=== PATIENT | female | born 1965 | race African-American/Black ===

== ENCOUNTER 2021-03-27 12:58 | Inpatient (IN) | payer OTHER ==
[2021-03-27] MEDS ORDERED: ACETAMINOPHEN 325 MG TABLET (FP) PO PRN ×2 (13:30)
[2021-03-27] MEDS ORDERED: NICOTINE 10 MG CARTRIDGE (INHALER) IH PRN (13:30)
[2021-03-27] MEDS ORDERED: IBUPROFEN 400 MG TABLET (FP) PO PRN (13:30)
[2021-03-27] MEDS ORDERED: ONDANSETRON *ODT* 4 MG TABLET SL PRN (13:30)
[2021-03-27] MEDS ORDERED: MAGNESIUM CITRATE 300 ML BOTTLE PO PRN (13:30)
[2021-03-27] MEDS ORDERED: cloNIDine HCL 0.1 MG TABLET PO PRN (13:30)
[2021-03-27] MEDS ORDERED: BISMUTH SUBSALICYLATE 524 MG/30 ML PO PRN (13:30)
[2021-03-27] MEDS ORDERED: MAG HYDROX/AL HYDROX/SIMETH 30 ML UNIT-DOSE CUP PO PRN (13:30)
[2021-03-27] MEDS ORDERED: MENTHOL/PHENOL 1 EACH UD MM PRN (13:30)
[2021-03-27] MEDS ORDERED: MAGNESIUM HYDROX 2400MG/30ML ORAL SUSPENSION 30 ML CUP PO PRN (13:30)
[2021-03-27] MEDS ORDERED: methaDONE HCL 10 MG TABLET (FOR DETOX USE ONLY) PO ONE (14:00)
[2021-03-27 14:06] VITALS: BMI 16.2
[2021-03-27] MEDS ORDERED: methaDONE HCL 10 MG TABLET (FOR DETOX USE ONLY) ONE (14:12)
[2021-03-27] MEDS: hydrOXYzine PAMOATE 25 MG CAPSULE (FP) PO SCH ×3 (14:39→22:41)
[2021-03-27] MEDS: PRENATAL VITAMINS W/ FOLIC ACID TABLET (FP) PO SCH (16:01)
[2021-03-27] MEDS: MELATONIN 5 MG TABLETS PO SCH (22:41)
[2021-03-27] MEDS: THIAMINE HCL 100 MG TABLET (FP) PO SCH (22:41)
[2021-03-28] MEDS: hydrOXYzine PAMOATE 25 MG CAPSULE (FP) PO SCH ×5 (06:18→21:31)
[2021-03-28] MEDS ORDERED: methaDONE HCL 10 MG TABLET (FOR DETOX USE ONLY) ONE (09:38)
[2021-03-28] MEDS: PRENATAL VITAMINS W/ FOLIC ACID TABLET (FP) PO SCH (10:04)
[2021-03-28] MEDS: METHOCARBAMOL 500 MG TABLET PO PRN (10:04)
[2021-03-28 11:49] LABS: HEMATOCRIT 38.6 % (32.4-45.2); HEMOGLOBIN 12.4 GM/dL (10.7-15.3); MCH 25.6 pg (25.7-33.7); MCHC 32.3 g/dl (32.0-36.0); MEAN CELL VOLUME 79.4 fl (80-96); MEAN PLT VOLUME 11.7 fl (7.5-11.1); PLATELET COUNT 310 10^3/uL (134-434); RBC 4.86 M/mm3 (3.60-5.2); RDW 14.2 % (11.6-15.6); WHITE BLOOD COUNT 9.2 K/mm3 (4.0-10.0)
[2021-03-28] MEDS ORDERED: FLU VACC QS2021-22(6MOS UP)/PF 60 MCG/0.5 ML SYRINGE IM ONE (12:00)
[2021-03-28 12:19] LABS: CALCIUM 8.7 mg/dL (8.5-10.1)
[2021-03-28 12:20] LABS: ALBUMIN 2.6 g/dl (3.4-5.0); BLOOD UREA NITROGEN 12.8 mg/dL (7-18)
[2021-03-28 12:23] LABS: CREATININE 0.9 mg/dL (0.55-1.3)
[2021-03-28 12:24] LABS: BILIRUBIN,TOTAL 0.3 mg/dL (0.2-1); TOT PROT 6.8 g/dl (6.4-8.2)
[2021-03-28] MEDS: MELATONIN 5 MG TABLETS PO SCH (21:31)
[2021-03-28] MEDS: THIAMINE HCL 100 MG TABLET (FP) PO SCH (21:31)
[2021-03-28] MEDS: QUEtiapine FUMARATE 100 MG TABLET (FP) PO SCH (21:31)
[2021-03-29] MEDS: hydrOXYzine PAMOATE 25 MG CAPSULE (FP) PO SCH ×4 (06:07→19:54)
[2021-03-29] MEDS ORDERED: methaDONE HCL 10 MG TABLET (FOR DETOX USE ONLY) PO ONE (10:00)
[2021-03-29] MEDS: PRENATAL VITAMINS W/ FOLIC ACID TABLET (FP) PO SCH (10:52)
[2021-03-29] MEDS: METHOCARBAMOL 500 MG TABLET PO PRN (10:52)
[2021-03-30] MEDS: hydrOXYzine PAMOATE 25 MG CAPSULE (FP) PO SCH ×6 (00:01→22:51)
[2021-03-30] MEDS: THIAMINE HCL 100 MG TABLET (FP) PO SCH ×2 (00:01→22:52)
[2021-03-30] MEDS: MELATONIN 5 MG TABLETS PO SCH ×2 (00:01→22:00)
[2021-03-30] MEDS: QUEtiapine FUMARATE 100 MG TABLET (FP) PO SCH ×2 (00:02→22:51)
[2021-03-30] MEDS ORDERED: methaDONE HCL 10 MG TABLET (FOR DETOX USE ONLY) ONE (09:38)
[2021-03-30] MEDS: PRENATAL VITAMINS W/ FOLIC ACID TABLET (FP) PO SCH (11:13)
[2021-03-30] MEDS: METHOCARBAMOL 500 MG TABLET PO PRN (11:14)
[2021-03-30] MEDS: METHYL SALICYLATE/MENTHOL OINT 30 GM TUBE TP SCH ×2 (15:34→22:00)
[2021-03-31] MEDS: hydrOXYzine PAMOATE 25 MG CAPSULE (FP) PO SCH ×5 (06:10→22:32)
[2021-03-31] MEDS ORDERED: methaDONE HCL 10 MG TABLET (FOR DETOX USE ONLY) PO ONE (10:00)
[2021-03-31] MEDS: PRENATAL VITAMINS W/ FOLIC ACID TABLET (FP) PO SCH (10:07)
[2021-03-31] MEDS: METHYL SALICYLATE/MENTHOL OINT 30 GM TUBE TP SCH ×2 (10:09→22:32)
[2021-03-31] MEDS: METHOCARBAMOL 500 MG TABLET PO PRN (10:12)
[2021-03-31] MEDS: THIAMINE HCL 100 MG TABLET (FP) PO SCH (22:32)
[2021-03-31] MEDS: MELATONIN 5 MG TABLETS PO SCH (22:32)
[2021-03-31] MEDS: QUEtiapine FUMARATE 100 MG TABLET (FP) PO SCH (22:32)
[2021-04-01] MEDS: hydrOXYzine PAMOATE 25 MG CAPSULE (FP) PO SCH ×3 (06:38→13:50)
[2021-04-01] MEDS: PRENATAL VITAMINS W/ FOLIC ACID TABLET (FP) PO SCH (11:11)
[2021-04-01] MEDS: METHYL SALICYLATE/MENTHOL OINT 30 GM TUBE TP SCH (11:12)
[2021-04-01 17:47] VITALS: BP 151/86; PULSE 95; TEMP 98.7
== END 2021-04-01 18:25 | disposition home or self-care (01) | DRG 773 ==
LOC: YASAS 12:58 → Y6N 14:45
PROVIDERS: ADMIT Allergy & Immunology; ATTEND Allergy & Immunology
PROC: HZ2ZZZZ Detoxification Services for Substance Abuse Treatment (ICD-10-PCS; principal; 2021-03-27)
DX: F11.23 Opioid dependence with withdrawal (principal); F14.20 Cocaine dependence, uncomplicated; F16.20 Hallucinogen dependence, uncomplicated; F12.20 Cannabis dependence, uncomplicated; F17.210 Nicotine dependence, cigarettes, uncomplicated; F19.280 Other psychoactive substance dependence with psychoactive substance-induced anxiety disorder; F19.282 Other psychoactive substance dependence with psychoactive substance-induced sleep disorder; F41.9 Anxiety disorder, unspecified; U07.1 COVID-19; M17.0 Bilateral primary osteoarthritis of knee; M47.9 Spondylosis, unspecified; Z86.19 Personal history of other infectious and parasitic diseases; Z56.0 Unemployment, unspecified; Z59.00 Homelessness unspecified
CPT/HCPCS: 36415; 80053; 85027; 86593; 86780; 90686; C9803; G0008; U0003; U0005

== ENCOUNTER 2021-11-15 12:52 | Inpatient (IN) | payer OTHER ==
[2021-11-15 15:27] VITALS: BMI 16.1
[2021-11-15] MEDS ORDERED: chlordiazePOXIDE HCL 25 MG CAPSULE PO PRN (16:42)
[2021-11-15] MEDS ORDERED: METHOCARBAMOL 500 MG TABLET PO PRN (16:42)
[2021-11-15] MEDS ORDERED: BENZOCAINE/MENTHOL (CHLORASEPTIC ) LOZENGE MM PRN (16:42)
[2021-11-15] MEDS ORDERED: BISMUTH SUBSALICYLATE 524 MG/30 ML PO PRN (16:42)
[2021-11-15] MEDS ORDERED: NICOTINE 10 MG CARTRIDGE (INHALER) IH PRN (16:42)
[2021-11-15] MEDS ORDERED: MAGNESIUM CITRATE 300 ML BOTTLE PO PRN (16:42)
[2021-11-15] MEDS ORDERED: MAGNESIUM HYDROX 2400MG/30ML ORAL SUSPENSION 30 ML CUP PO PRN (16:42)
[2021-11-15] MEDS ORDERED: IBUPROFEN 400 MG TABLET (FP) PO PRN (16:42)
[2021-11-15] MEDS ORDERED: LOPERAMIDE HCL 2 MG CAPSULE PO PRN (16:42)
[2021-11-15] MEDS ORDERED: IBUPROFEN 600 MG TABLET (FP) PO PRN (16:42)
[2021-11-15] MEDS ORDERED: MAG HYDROX/AL HYDROX/SIMETH 30 ML UNIT-DOSE CUP PO PRN (16:42)
[2021-11-15] MEDS ORDERED: ACETAMINOPHEN 325 MG TABLET (FP) PO PRN ×2 (16:42)
[2021-11-15] MEDS ORDERED: methaDONE HCL 10 MG TABLET (FOR DETOX USE ONLY) PO ONE (16:42)
[2021-11-15] MEDS ORDERED: DICYCLOMINE HCL 10 MG CAPSULE PO PRN (16:42)
[2021-11-15] MEDS ORDERED: methaDONE HCL 10 MG TABLET (FOR DETOX USE ONLY) ONE (16:59)
[2021-11-15] MEDS ORDERED: chlordiazePOXIDE HCL 25 MG CAPSULE ONE (17:26)
[2021-11-15] MEDS: chlordiazePOXIDE HCL 25 MG CAPSULE PO SCH ×2 (17:31→22:56)
[2021-11-15] MEDS: MELATONIN 5 MG TABLETS PO SCH (22:56)
[2021-11-15] MEDS: THIAMINE HCL 100 MG TABLET (FP) PO SCH (22:57)
[2021-11-16] MEDS: cloNIDine HCL 0.1 MG TABLET PO PRN (05:59)
[2021-11-16] MEDS: chlordiazePOXIDE HCL 25 MG CAPSULE PO SCH ×4 (05:59→22:59)
[2021-11-16] MEDS: NICOTINE 7 MG/24 HOURS TOPICAL PATCH TD SCH (11:05)
[2021-11-16] MEDS: PRENATAL VITAMINS W/ FOLIC ACID TABLET (FP) PO SCH (11:05)
[2021-11-16 14:24] LABS: HEMATOCRIT 39.4 % (32.4-45.2); MCH 26.2 pg (25.7-33.7); MEAN CELL VOLUME 79.5 fl (80-96); MEAN PLT VOLUME 10.5 fl (7.5-11.1); PLATELET COUNT 162 10^3/uL (134-434); RBC 4.95 M/mm3 (3.60-5.2); RDW 15.1 % (11.6-15.6); WHITE BLOOD COUNT 10.5 K/mm3 (4.0-10.0)
[2021-11-16 14:27] LABS: ALBUMIN 2.7 g/dl (3.4-5.0); CALCIUM 8.9 mg/dL (8.5-10.1); CREATININE 0.6 mg/dL (0.55-1.3)
[2021-11-16 14:28] LABS: TOT PROT 6.6 g/dl (6.4-8.2)
[2021-11-16 14:29] LABS: BILIRUBIN,TOTAL 0.4 mg/dL (0.2-1)
[2021-11-16] MEDS ORDERED: QUEtiapine FUMARATE 200 MG TABLET PO SCH (22:00)
[2021-11-16] MEDS ORDERED: QUEtiapine FUMARATE 200 MG TABLET PO PRN (22:00)
[2021-11-16] MEDS: MELATONIN 5 MG TABLETS PO SCH (22:59)
[2021-11-16] MEDS: THIAMINE HCL 100 MG TABLET (FP) PO SCH (22:59)
[2021-11-17] MEDS: chlordiazePOXIDE HCL 25 MG CAPSULE PO SCH ×3 (06:28→18:02)
[2021-11-17] MEDS: cloNIDine HCL 0.1 MG TABLET PO PRN ×2 (06:29→10:53)
[2021-11-17] MEDS ORDERED: methaDONE HCL 10 MG TABLET (FOR DETOX USE ONLY) PO ONE (10:00)
[2021-11-17] MEDS: NICOTINE 7 MG/24 HOURS TOPICAL PATCH TD SCH (10:53)
[2021-11-17] MEDS: PRENATAL VITAMINS W/ FOLIC ACID TABLET (FP) PO SCH (10:53)
[2021-11-17] MEDS: SIMETHICONE 80 MG TAB.CHEW (FP) PO SCH ×2 (13:47→18:02)
[2021-11-17 19:06] VITALS: BP 112/63; PULSE 81; RESP 16; TEMP 97.1
[2021-11-18] MEDS ORDERED: chlordiazePOXIDE HCL 10 MG CAPSULE PO PRN
[2021-11-18] MEDS ORDERED: chlordiazePOXIDE HCL 10 MG CAPSULE PO SCH (05:00)
[2021-11-19] MEDS ORDERED: chlordiazePOXIDE HCL 10 MG CAPSULE PO SCH (05:00)
[2021-11-19] MEDS ORDERED: methaDONE HCL 10 MG TABLET (FOR DETOX USE ONLY) PO ONE (10:00)
[2021-11-20] MEDS ORDERED: chlordiazePOXIDE HCL 10 MG CAPSULE PO ONE (05:00)
== END 2021-11-17 19:22 | disposition left against medical advice (07) | DRG 770 ==
LOC: YASAS 12:52 → Y3N 17:49
PROVIDERS: ADMIT Allergy & Immunology; ATTEND Surgery
PROC: HZ2ZZZZ Detoxification Services for Substance Abuse Treatment (ICD-10-PCS; principal; 2021-11-15)
DX: F10.230 Alcohol dependence with withdrawal, uncomplicated (principal); F11.20 Opioid dependence, uncomplicated; F14.20 Cocaine dependence, uncomplicated; F12.20 Cannabis dependence, uncomplicated; F17.210 Nicotine dependence, cigarettes, uncomplicated; F19.24 Other psychoactive substance dependence with psychoactive substance-induced mood disorder; F43.10 Post-traumatic stress disorder, unspecified; D72.829 Elevated white blood cell count, unspecified; W19.XXXA Unspecified fall, initial encounter; Y92.239 Unspecified place in hospital as the place of occurrence of the external cause; Y93.9 Activity, unspecified; Z86.19 Personal history of other infectious and parasitic diseases; Z59.00 Homelessness unspecified
CPT/HCPCS: 36415; 80053; 85027; 87811; C9803-CS; U0003; U0005

== ENCOUNTER 2022-02-19 16:32 | Inpatient (IN) | payer OTHER ==
[2022-02-19 17:12] VITALS: BMI 18.3
[2022-02-19] MEDS ORDERED: LOPERAMIDE HCL 2 MG CAPSULE PO PRN (18:04)
[2022-02-19] MEDS ORDERED: MAGNESIUM HYDROX 2400MG/30ML ORAL SUSPENSION 30 ML CUP PO PRN (18:04)
[2022-02-19] MEDS ORDERED: MAG HYDROX/AL HYDROX/SIMETH 30 ML UNIT-DOSE CUP PO PRN (18:04)
[2022-02-19] MEDS ORDERED: POLYETHYLENE GLYCOL (HEALTHYLAX) 3350 17 GM PACKET PO PRN (18:04)
[2022-02-19] MEDS: MELATONIN 5 MG TABLETS PO SCH (21:45)
[2022-02-19] MEDS: THIAMINE HCL 100 MG TABLET (FP) PO SCH (21:45)
[2022-02-19] MEDS: PRENATAL VITAMINS W/ FOLIC ACID TABLET (FP) PO SCH (21:46)
[2022-02-19] MEDS: NICOTINE 7 MG/24 HOURS TOPICAL PATCH TD SCH (21:46)
[2022-02-19] MEDS: ACETAMINOPHEN 325 MG TABLET (FP) PO PRN (21:58)
[2022-02-19] MEDS: CLOTRIMAZOLE 1% CREAM TP SCH (22:41)
[2022-02-20] MEDS: PRENATAL VITAMINS W/ FOLIC ACID TABLET (FP) PO SCH (10:20)
[2022-02-20] MEDS: CLOTRIMAZOLE 1% CREAM TP SCH ×2 (10:20→21:02)
[2022-02-20] MEDS: FLUTICASONE PROP 0.05% 16 GM NASAL SPRAY NS SCH (10:20)
[2022-02-20] MEDS: NICOTINE 7 MG/24 HOURS TOPICAL PATCH TD SCH (10:20)
[2022-02-20 10:21] LABS: HEMATOCRIT 34.7 % (32.4-45.2); HEMOGLOBIN 11.7 GM/dL (10.7-15.3); MCH 26.3 pg (25.7-33.7); MCHC 33.7 g/dl (32.0-36.0); MEAN PLT VOLUME 9.9 fl (7.5-11.1); PLATELET COUNT 160 10^3/uL (134-434); RBC 4.45 M/mm3 (3.60-5.2); RDW 15.1 % (11.6-15.6); WHITE BLOOD COUNT 8.6 K/mm3 (4.0-10.0)
[2022-02-20] MEDS: IBUPROFEN 400 MG TABLET (FP) PO PRN ×2 (10:21→21:02)
[2022-02-20] MEDS: NICOTINE 10 MG CARTRIDGE (INHALER) IH PRN (10:21)
[2022-02-20] MEDS: hydrOXYzine PAMOATE 25 MG CAPSULE (FP) PO PRN ×2 (10:26→21:03)
[2022-02-20 10:27] LABS: EPI CELLS 8 /uL (0-25.1); HYALINE CASTS 0 /uL (0-3.1); URINE APPEARANCE CLEAR; URINE BACTERIA 11 /uL (0-1359); URINE BILIRUBIN NEGATIVE (NEGATIVE); URINE COLOR YELLOW; URINE GLUCOSE (UA) NEGATIVE (NEGATIVE); URINE KETONE NEGATIVE (NEGATIVE); URINE LEUK ESTERASE 1+ (NEGATIVE); URINE NITRITE NEGATIVE (NEGATIVE); URINE PROTEIN NEGATIVE (NEGATIVE); URINE RBC 3 /uL (0-23.9); URINE UROBILINOGEN 0.2 mg/dL (0.2-1.0); URINE WBC 24 /uL (0-25.8)
[2022-02-20 10:32] LABS: CALCIUM 9.2 mg/dL (8.5-10.1)
[2022-02-20 10:33] LABS: ALBUMIN 3.3 g/dl (3.4-5.0)
[2022-02-20 10:36] LABS: CREATININE 0.8 mg/dL (0.55-1.3)
[2022-02-20 10:37] LABS: BILIRUBIN,TOTAL 0.2 mg/dL (0.2-1); TOT PROT 7.7 g/dl (6.4-8.2)
[2022-02-20] MEDS: AMMONIUM LACTATE 12% LOTION 225 GM BOTTLE TP SCH (14:42)
[2022-02-20] MEDS: ACETAMINOPHEN 325 MG TABLET (FP) PO PRN (16:42)
[2022-02-20] MEDS: MELATONIN 5 MG TABLETS PO SCH (21:02)
[2022-02-20] MEDS: THIAMINE HCL 100 MG TABLET (FP) PO SCH (21:03)
[2022-02-20] MEDS: QUEtiapine FUMARATE 50 MG TABLET PO SCH (21:04)
[2022-02-20] MEDS: METHOCARBAMOL 500 MG TABLET PO PRN (21:04)
[2022-02-21] MEDS: IBUPROFEN 400 MG TABLET (FP) PO PRN (06:47)
[2022-02-21] MEDS: NICOTINE 7 MG/24 HOURS TOPICAL PATCH TD SCH (10:23)
[2022-02-21] MEDS: PRENATAL VITAMINS W/ FOLIC ACID TABLET (FP) PO SCH (10:23)
[2022-02-21] MEDS: CLOTRIMAZOLE 1% CREAM TP SCH ×2 (10:24→21:05)
[2022-02-21] MEDS: FLUTICASONE PROP 0.05% 16 GM NASAL SPRAY NS SCH (10:24)
[2022-02-21] MEDS: AMMONIUM LACTATE 12% LOTION 225 GM BOTTLE TP SCH (10:25)
[2022-02-21] MEDS: hydrOXYzine PAMOATE 25 MG CAPSULE (FP) PO PRN (10:26)
[2022-02-21] MEDS: ACETAMINOPHEN 325 MG TABLET (FP) PO PRN (10:27)
[2022-02-21] MEDS ORDERED: BUPRENORPHINE/NALOXONE 2 MG/0.5 MG FILM PACKET SL ONE (12:43)
[2022-02-21] MEDS: BUPRENORPHINE/NALOXONE 4 MG/1 MG FILM PACKET SL SCH (21:03)
[2022-02-21] MEDS: THIAMINE HCL 100 MG TABLET (FP) PO SCH (21:05)
[2022-02-21] MEDS: MELATONIN 5 MG TABLETS PO SCH (21:05)
[2022-02-21] MEDS: QUEtiapine FUMARATE 50 MG TABLET PO SCH (21:34)
[2022-02-22] MEDS: NICOTINE 7 MG/24 HOURS TOPICAL PATCH TD SCH (10:35)
[2022-02-22] MEDS: PRENATAL VITAMINS W/ FOLIC ACID TABLET (FP) PO SCH (10:35)
[2022-02-22] MEDS: NICOTINE 10 MG CARTRIDGE (INHALER) IH PRN (10:36)
[2022-02-22] MEDS: BUPRENORPHINE/NALOXONE 4 MG/1 MG FILM PACKET SL SCH ×2 (10:36→21:07)
[2022-02-22] MEDS: AMMONIUM LACTATE 12% LOTION 225 GM BOTTLE TP SCH (10:36)
[2022-02-22] MEDS: hydrOXYzine PAMOATE 25 MG CAPSULE (FP) PO PRN ×2 (10:37→21:09)
[2022-02-22] MEDS: FLUTICASONE PROP 0.05% 16 GM NASAL SPRAY NS SCH (10:38)
[2022-02-22] MEDS: CLOTRIMAZOLE 1% CREAM TP SCH ×2 (10:38→21:07)
[2022-02-22] MEDS: METHOCARBAMOL 500 MG TABLET PO PRN ×2 (14:23→21:06)
[2022-02-22] MEDS: IBUPROFEN 400 MG TABLET (FP) PO PRN ×2 (14:23→21:08)
[2022-02-22] MEDS: THIAMINE HCL 100 MG TABLET (FP) PO SCH (21:07)
[2022-02-22] MEDS: QUEtiapine FUMARATE 50 MG TABLET PO SCH (21:07)
[2022-02-22] MEDS: MELATONIN 5 MG TABLETS PO SCH (21:07)
[2022-02-23] MEDS: PRENATAL VITAMINS W/ FOLIC ACID TABLET (FP) PO SCH (10:23)
[2022-02-23] MEDS: CLOTRIMAZOLE 1% CREAM TP SCH ×2 (10:24→21:14)
[2022-02-23] MEDS: NICOTINE 7 MG/24 HOURS TOPICAL PATCH TD SCH (10:24)
[2022-02-23] MEDS: FLUTICASONE PROP 0.05% 16 GM NASAL SPRAY NS SCH (10:24)
[2022-02-23] MEDS: BUPRENORPHINE/NALOXONE 4 MG/1 MG FILM PACKET SL SCH ×2 (10:24→21:13)
[2022-02-23] MEDS: AMMONIUM LACTATE 12% LOTION 225 GM BOTTLE TP SCH (10:24)
[2022-02-23] MEDS: QUEtiapine FUMARATE 50 MG TABLET PO SCH (21:13)
[2022-02-23] MEDS: METHOCARBAMOL 500 MG TABLET PO PRN (21:13)
[2022-02-23] MEDS: THIAMINE HCL 100 MG TABLET (FP) PO SCH (21:13)
[2022-02-23] MEDS: MELATONIN 5 MG TABLETS PO SCH (21:14)
[2022-02-24] MEDS: CLOTRIMAZOLE 1% CREAM TP SCH ×2 (09:42→21:12)
[2022-02-24] MEDS: FLUTICASONE PROP 0.05% 16 GM NASAL SPRAY NS SCH (09:42)
[2022-02-24] MEDS: NICOTINE 7 MG/24 HOURS TOPICAL PATCH TD SCH (09:43)
[2022-02-24] MEDS: PRENATAL VITAMINS W/ FOLIC ACID TABLET (FP) PO SCH (09:43)
[2022-02-24] MEDS: ACETAMINOPHEN 325 MG TABLET (FP) PO PRN (09:43)
[2022-02-24] MEDS: BUPRENORPHINE/NALOXONE 4 MG/1 MG FILM PACKET SL SCH (09:43)
[2022-02-24] MEDS: hydrOXYzine PAMOATE 25 MG CAPSULE (FP) PO PRN (09:44)
[2022-02-24] MEDS: AMMONIUM LACTATE 12% LOTION 225 GM BOTTLE TP SCH (09:45)
[2022-02-24] MEDS ORDERED: BUPRENORPHINE/NALOXONE 4 MG/1 MG FILM PACKET SL ONE (12:30)
[2022-02-24] MEDS: MELATONIN 5 MG TABLETS PO SCH (21:12)
[2022-02-24] MEDS: METHOCARBAMOL 500 MG TABLET PO PRN (21:12)
[2022-02-24] MEDS: QUEtiapine FUMARATE 50 MG TABLET PO SCH (21:12)
[2022-02-24] MEDS: THIAMINE HCL 100 MG TABLET (FP) PO SCH (21:12)
[2022-02-24] MEDS: BUPRENORPHINE/NALOXONE 8 MG/2 MG FILM PACKET SL SCH (21:15)
[2022-02-25] MEDS: METHOCARBAMOL 500 MG TABLET PO PRN (06:29)
[2022-02-25] MEDS: NICOTINE 10 MG CARTRIDGE (INHALER) IH PRN (10:31)
[2022-02-25] MEDS: LIDOCAINE 5% TOPICAL PATCH TP SCH (10:31)
[2022-02-25] MEDS: PRENATAL VITAMINS W/ FOLIC ACID TABLET (FP) PO SCH (10:31)
[2022-02-25] MEDS: FLUTICASONE PROP 0.05% 16 GM NASAL SPRAY NS SCH (10:32)
[2022-02-25] MEDS: AMMONIUM LACTATE 12% LOTION 225 GM BOTTLE TP SCH (10:32)
[2022-02-25] MEDS: CLOTRIMAZOLE 1% CREAM TP SCH ×2 (10:32→21:50)
[2022-02-25] MEDS: NICOTINE 7 MG/24 HOURS TOPICAL PATCH TD SCH (10:33)
[2022-02-25] MEDS: BUPRENORPHINE/NALOXONE 8 MG/2 MG FILM PACKET SL SCH ×2 (10:33→21:08)
[2022-02-25] MEDS: THIAMINE HCL 100 MG TABLET (FP) PO SCH (21:08)
[2022-02-25] MEDS: MELATONIN 5 MG TABLETS PO SCH (21:08)
[2022-02-25] MEDS: QUEtiapine FUMARATE 50 MG TABLET PO SCH (21:08)
[2022-02-25] MEDS: LIDOCAINE PATCH REMOVAL MC SCH (21:09)
[2022-02-26] MEDS: BUPRENORPHINE/NALOXONE 8 MG/2 MG FILM PACKET SL SCH ×2 (10:24→21:24)
[2022-02-26] MEDS: PRENATAL VITAMINS W/ FOLIC ACID TABLET (FP) PO SCH (10:24)
[2022-02-26] MEDS: NICOTINE 7 MG/24 HOURS TOPICAL PATCH TD SCH (10:24)
[2022-02-26] MEDS: LIDOCAINE 5% TOPICAL PATCH TP SCH ×2 (10:25→14:50)
[2022-02-26] MEDS: AMMONIUM LACTATE 12% LOTION 225 GM BOTTLE TP SCH (10:25)
[2022-02-26] MEDS: CLOTRIMAZOLE 1% CREAM TP SCH ×2 (10:26→21:24)
[2022-02-26] MEDS: FLUTICASONE PROP 0.05% 16 GM NASAL SPRAY NS SCH (10:26)
[2022-02-26] MEDS: QUEtiapine FUMARATE 50 MG TABLET PO SCH (21:24)
[2022-02-26] MEDS: MELATONIN 5 MG TABLETS PO SCH (21:24)
[2022-02-26] MEDS: THIAMINE HCL 100 MG TABLET (FP) PO SCH (21:24)
[2022-02-26] MEDS: LIDOCAINE PATCH REMOVAL MC SCH ×2 (21:25)
[2022-02-27] MEDS: PRENATAL VITAMINS W/ FOLIC ACID TABLET (FP) PO SCH (10:42)
[2022-02-27] MEDS: FLUTICASONE PROP 0.05% 16 GM NASAL SPRAY NS SCH ×2 (10:42→21:20)
[2022-02-27] MEDS: LIDOCAINE 5% TOPICAL PATCH TP SCH ×2 (10:43)
[2022-02-27] MEDS: AMMONIUM LACTATE 12% LOTION 225 GM BOTTLE TP SCH (10:43)
[2022-02-27] MEDS: NICOTINE 7 MG/24 HOURS TOPICAL PATCH TD SCH (10:44)
[2022-02-27] MEDS: BUPRENORPHINE/NALOXONE 8 MG/2 MG FILM PACKET SL SCH ×2 (10:45→21:21)
[2022-02-27] MEDS: CLOTRIMAZOLE 1% CREAM TP SCH ×2 (10:45→21:21)
[2022-02-27] MEDS: hydrOXYzine PAMOATE 25 MG CAPSULE (FP) PO PRN (20:01)
[2022-02-27] MEDS: LIDOCAINE PATCH REMOVAL MC SCH ×2 (21:20)
[2022-02-27] MEDS: METHOCARBAMOL 500 MG TABLET PO PRN (21:21)
[2022-02-27] MEDS: MELATONIN 5 MG TABLETS PO SCH (21:21)
[2022-02-27] MEDS: QUEtiapine FUMARATE 50 MG TABLET PO SCH (21:21)
[2022-02-27] MEDS: THIAMINE HCL 100 MG TABLET (FP) PO SCH (21:21)
[2022-02-28] MEDS: PRENATAL VITAMINS W/ FOLIC ACID TABLET (FP) PO SCH (10:28)
[2022-02-28] MEDS: BUPRENORPHINE/NALOXONE 8 MG/2 MG FILM PACKET SL SCH ×2 (10:28→21:38)
[2022-02-28] MEDS: LIDOCAINE 5% TOPICAL PATCH TP SCH ×2 (10:29)
[2022-02-28] MEDS: CLOTRIMAZOLE 1% CREAM TP SCH ×2 (10:29→21:39)
[2022-02-28] MEDS: NICOTINE 7 MG/24 HOURS TOPICAL PATCH TD SCH (10:29)
[2022-02-28] MEDS: AMMONIUM LACTATE 12% LOTION 225 GM BOTTLE TP SCH (10:30)
[2022-02-28] MEDS: NICOTINE 10 MG CARTRIDGE (INHALER) IH PRN (10:31)
[2022-02-28] MEDS: FLUTICASONE PROP 0.05% 16 GM NASAL SPRAY NS SCH ×2 (10:31→21:37)
[2022-02-28] MEDS: hydrOXYzine PAMOATE 25 MG CAPSULE (FP) PO PRN (19:57)
[2022-02-28] MEDS: QUEtiapine FUMARATE 50 MG TABLET PO SCH (21:38)
[2022-02-28] MEDS: METHOCARBAMOL 500 MG TABLET PO PRN (21:38)
[2022-02-28] MEDS: MELATONIN 5 MG TABLETS PO SCH (21:38)
[2022-02-28] MEDS: THIAMINE HCL 100 MG TABLET (FP) PO SCH (21:38)
[2022-02-28] MEDS: LIDOCAINE PATCH REMOVAL MC SCH ×2 (21:39)
[2022-03-01] MEDS: NICOTINE 10 MG CARTRIDGE (INHALER) IH PRN (07:00)
[2022-03-01] MEDS: PRENATAL VITAMINS W/ FOLIC ACID TABLET (FP) PO SCH (10:32)
[2022-03-01] MEDS: NICOTINE 7 MG/24 HOURS TOPICAL PATCH TD SCH (10:32)
[2022-03-01] MEDS: BUPRENORPHINE/NALOXONE 8 MG/2 MG FILM PACKET SL SCH ×3 (10:33→21:53)
[2022-03-01] MEDS: CLOTRIMAZOLE 1% CREAM TP SCH ×2 (10:34→23:52)
[2022-03-01] MEDS: AMMONIUM LACTATE 12% LOTION 225 GM BOTTLE TP SCH (10:34)
[2022-03-01] MEDS: FLUTICASONE PROP 0.05% 16 GM NASAL SPRAY NS SCH ×2 (10:34→21:53)
[2022-03-01] MEDS: LIDOCAINE 5% TOPICAL PATCH TP SCH ×2 (10:35)
[2022-03-01] MEDS: METHOCARBAMOL 500 MG TABLET PO PRN (10:36)
[2022-03-01] MEDS: THIAMINE HCL 100 MG TABLET (FP) PO SCH (21:52)
[2022-03-01] MEDS: MELATONIN 5 MG TABLETS PO SCH (21:52)
[2022-03-01] MEDS: QUEtiapine FUMARATE 50 MG TABLET PO SCH (21:52)
[2022-03-01] MEDS: LIDOCAINE PATCH REMOVAL MC SCH ×2 (23:51)
[2022-03-02] MEDS: NICOTINE 10 MG CARTRIDGE (INHALER) IH PRN (06:27)
[2022-03-02] MEDS: BUPRENORPHINE/NALOXONE 8 MG/2 MG FILM PACKET SL SCH ×3 (06:27→22:10)
[2022-03-02] MEDS: PRENATAL VITAMINS W/ FOLIC ACID TABLET (FP) PO SCH (10:17)
[2022-03-02] MEDS: FLUTICASONE PROP 0.05% 16 GM NASAL SPRAY NS SCH ×2 (10:18→22:11)
[2022-03-02] MEDS: LIDOCAINE 5% TOPICAL PATCH TP SCH ×2 (10:18→10:19)
[2022-03-02] MEDS: AMMONIUM LACTATE 12% LOTION 225 GM BOTTLE TP SCH (10:18)
[2022-03-02] MEDS: METHOCARBAMOL 500 MG TABLET PO PRN (10:19)
[2022-03-02] MEDS: NICOTINE 7 MG/24 HOURS TOPICAL PATCH TD SCH (10:19)
[2022-03-02] MEDS: CLOTRIMAZOLE 1% CREAM TP SCH ×2 (10:19→22:16)
[2022-03-02] MEDS: IBUPROFEN 400 MG TABLET (FP) PO PRN ×2 (13:13→22:10)
[2022-03-02] MEDS: QUEtiapine FUMARATE 50 MG TABLET PO SCH (22:09)
[2022-03-02] MEDS: THIAMINE HCL 100 MG TABLET (FP) PO SCH (22:09)
[2022-03-02] MEDS: MELATONIN 5 MG TABLETS PO SCH (22:09)
[2022-03-02] MEDS: LIDOCAINE PATCH REMOVAL MC SCH ×2 (22:12)
[2022-03-03] MEDS: BUPRENORPHINE/NALOXONE 8 MG/2 MG FILM PACKET SL SCH ×3 (06:27→21:42)
[2022-03-03] MEDS: PRENATAL VITAMINS W/ FOLIC ACID TABLET (FP) PO SCH (10:32)
[2022-03-03] MEDS: NICOTINE 7 MG/24 HOURS TOPICAL PATCH TD SCH (10:33)
[2022-03-03] MEDS: LIDOCAINE 5% TOPICAL PATCH TP SCH ×2 (10:33)
[2022-03-03] MEDS: FLUTICASONE PROP 0.05% 16 GM NASAL SPRAY NS SCH ×2 (10:34→21:40)
[2022-03-03] MEDS: AMMONIUM LACTATE 12% LOTION 225 GM BOTTLE TP SCH (10:34)
[2022-03-03] MEDS: IBUPROFEN 400 MG TABLET (FP) PO PRN (10:35)
[2022-03-03] MEDS: CLOTRIMAZOLE 1% CREAM TP SCH ×2 (10:35→21:41)
[2022-03-03] MEDS: NICOTINE 10 MG CARTRIDGE (INHALER) IH PRN (10:36)
[2022-03-03] MEDS: ACETAMINOPHEN 325 MG TABLET (FP) PO PRN (14:19)
[2022-03-03] MEDS: METHOCARBAMOL 500 MG TABLET PO PRN (21:41)
[2022-03-03] MEDS: QUEtiapine FUMARATE 50 MG TABLET PO SCH (21:41)
[2022-03-03] MEDS: LIDOCAINE PATCH REMOVAL MC SCH ×2 (21:41)
[2022-03-03] MEDS: MELATONIN 5 MG TABLETS PO SCH (21:41)
[2022-03-03] MEDS: hydrOXYzine PAMOATE 25 MG CAPSULE (FP) PO PRN (21:42)
[2022-03-03] MEDS: THIAMINE HCL 100 MG TABLET (FP) PO SCH (21:42)
[2022-03-04] MEDS: BUPRENORPHINE/NALOXONE 8 MG/2 MG FILM PACKET SL SCH ×3 (06:19→21:30)
[2022-03-04] MEDS: PRENATAL VITAMINS W/ FOLIC ACID TABLET (FP) PO SCH (10:41)
[2022-03-04] MEDS: NICOTINE 7 MG/24 HOURS TOPICAL PATCH TD SCH (10:41)
[2022-03-04] MEDS: AMMONIUM LACTATE 12% LOTION 225 GM BOTTLE TP SCH (10:42)
[2022-03-04] MEDS: CLOTRIMAZOLE 1% CREAM TP SCH ×2 (10:42→21:30)
[2022-03-04] MEDS: FLUTICASONE PROP 0.05% 16 GM NASAL SPRAY NS SCH ×2 (10:43→21:28)
[2022-03-04] MEDS: LIDOCAINE 5% TOPICAL PATCH TP SCH ×2 (10:43→10:44)
[2022-03-04] MEDS: NICOTINE 10 MG CARTRIDGE (INHALER) IH PRN (10:45)
[2022-03-04] MEDS: METHOCARBAMOL 500 MG TABLET PO PRN (10:46)
[2022-03-04] MEDS: QUEtiapine FUMARATE 50 MG TABLET PO SCH (21:29)
[2022-03-04] MEDS: MELATONIN 5 MG TABLETS PO SCH (21:29)
[2022-03-04] MEDS: THIAMINE HCL 100 MG TABLET (FP) PO SCH (21:29)
[2022-03-05] MEDS: LIDOCAINE PATCH REMOVAL MC SCH ×4 (00:01→21:45)
[2022-03-05] MEDS: IBUPROFEN 400 MG TABLET (FP) PO PRN (07:10)
[2022-03-05] MEDS: BUPRENORPHINE/NALOXONE 8 MG/2 MG FILM PACKET SL SCH ×3 (07:11→21:45)
[2022-03-05] MEDS: NICOTINE 10 MG CARTRIDGE (INHALER) IH PRN (07:12)
[2022-03-05] MEDS: FLUTICASONE PROP 0.05% 16 GM NASAL SPRAY NS SCH ×2 (10:19→21:44)
[2022-03-05] MEDS: PRENATAL VITAMINS W/ FOLIC ACID TABLET (FP) PO SCH (10:19)
[2022-03-05] MEDS: AMMONIUM LACTATE 12% LOTION 225 GM BOTTLE TP SCH (10:20)
[2022-03-05] MEDS: LIDOCAINE 5% TOPICAL PATCH TP SCH ×2 (10:20→10:21)
[2022-03-05] MEDS: NICOTINE 7 MG/24 HOURS TOPICAL PATCH TD SCH (10:21)
[2022-03-05] MEDS: CLOTRIMAZOLE 1% CREAM TP SCH ×2 (10:21→21:46)
[2022-03-05] MEDS: ACETAMINOPHEN 325 MG TABLET (FP) PO PRN (14:15)
[2022-03-05] MEDS: METHOCARBAMOL 500 MG TABLET PO PRN (21:44)
[2022-03-05] MEDS: THIAMINE HCL 100 MG TABLET (FP) PO SCH (21:45)
[2022-03-05] MEDS: MELATONIN 5 MG TABLETS PO SCH (21:46)
[2022-03-05] MEDS: BENZOCAINE 20 % GEL TUBE MM PRN (21:49)
[2022-03-05] MEDS: QUEtiapine FUMARATE 50 MG TABLET PO SCH (22:28)
[2022-03-06] MEDS: BUPRENORPHINE/NALOXONE 8 MG/2 MG FILM PACKET SL SCH ×3 (05:54→21:52)
[2022-03-06] MEDS: AMMONIUM LACTATE 12% LOTION 225 GM BOTTLE TP SCH (10:10)
[2022-03-06] MEDS: FLUTICASONE PROP 0.05% 16 GM NASAL SPRAY NS SCH ×2 (10:10→21:52)
[2022-03-06] MEDS: LIDOCAINE 5% TOPICAL PATCH TP SCH ×2 (10:11)
[2022-03-06] MEDS: NICOTINE 7 MG/24 HOURS TOPICAL PATCH TD SCH (10:12)
[2022-03-06] MEDS: PRENATAL VITAMINS W/ FOLIC ACID TABLET (FP) PO SCH (10:12)
[2022-03-06] MEDS: CLOTRIMAZOLE 1% CREAM TP SCH ×2 (10:12→21:55)
[2022-03-06] MEDS: QUEtiapine FUMARATE 50 MG TABLET PO SCH (21:51)
[2022-03-06] MEDS: THIAMINE HCL 100 MG TABLET (FP) PO SCH (21:51)
[2022-03-06] MEDS: MELATONIN 5 MG TABLETS PO SCH (21:52)
[2022-03-06] MEDS: LIDOCAINE PATCH REMOVAL MC SCH ×2 (21:54→21:55)
[2022-03-07] MEDS: NICOTINE 10 MG CARTRIDGE (INHALER) IH PRN ×2 (06:05→21:24)
[2022-03-07] MEDS: BUPRENORPHINE/NALOXONE 8 MG/2 MG FILM PACKET SL SCH ×3 (06:05→21:26)
[2022-03-07] MEDS: PRENATAL VITAMINS W/ FOLIC ACID TABLET (FP) PO SCH (10:18)
[2022-03-07] MEDS: FLUTICASONE PROP 0.05% 16 GM NASAL SPRAY NS SCH ×2 (10:18→21:22)
[2022-03-07] MEDS: NICOTINE 7 MG/24 HOURS TOPICAL PATCH TD SCH (10:18)
[2022-03-07] MEDS: BENZOCAINE 20 % GEL TUBE MM PRN (10:19)
[2022-03-07] MEDS: LIDOCAINE 5% TOPICAL PATCH TP SCH ×2 (10:20)
[2022-03-07] MEDS: AMMONIUM LACTATE 12% LOTION 225 GM BOTTLE TP SCH (10:21)
[2022-03-07] MEDS: CLOTRIMAZOLE 1% CREAM TP SCH ×2 (10:21→21:25)
[2022-03-07] MEDS: hydrOXYzine PAMOATE 25 MG CAPSULE (FP) PO PRN (21:22)
[2022-03-07] MEDS: MELATONIN 5 MG TABLETS PO SCH (21:23)
[2022-03-07] MEDS: QUEtiapine FUMARATE 50 MG TABLET PO SCH (21:23)
[2022-03-07] MEDS: METHOCARBAMOL 500 MG TABLET PO PRN (21:23)
[2022-03-07] MEDS: LIDOCAINE PATCH REMOVAL MC SCH ×2 (21:24)
[2022-03-07] MEDS: THIAMINE HCL 100 MG TABLET (FP) PO SCH (21:25)
[2022-03-08] MEDS: BUPRENORPHINE/NALOXONE 8 MG/2 MG FILM PACKET SL SCH ×3 (06:25→22:14)
[2022-03-08] MEDS: NICOTINE 10 MG CARTRIDGE (INHALER) IH PRN (10:43)
[2022-03-08] MEDS: FLUTICASONE PROP 0.05% 16 GM NASAL SPRAY NS SCH ×2 (10:43→22:12)
[2022-03-08] MEDS: CLOTRIMAZOLE 1% CREAM TP SCH ×2 (10:44→22:15)
[2022-03-08] MEDS: NICOTINE 7 MG/24 HOURS TOPICAL PATCH TD SCH (10:44)
[2022-03-08] MEDS: PRENATAL VITAMINS W/ FOLIC ACID TABLET (FP) PO SCH (10:44)
[2022-03-08] MEDS: AMMONIUM LACTATE 12% LOTION 225 GM BOTTLE TP SCH (10:45)
[2022-03-08] MEDS: LIDOCAINE 5% TOPICAL PATCH TP SCH ×2 (10:45)
[2022-03-08] MEDS: THIAMINE HCL 100 MG TABLET (FP) PO SCH (22:11)
[2022-03-08] MEDS: QUEtiapine FUMARATE 50 MG TABLET PO SCH (22:11)
[2022-03-08] MEDS: LIDOCAINE PATCH REMOVAL MC SCH ×2 (22:12→22:15)
[2022-03-08] MEDS: hydrOXYzine PAMOATE 25 MG CAPSULE (FP) PO PRN (22:12)
[2022-03-08] MEDS: MELATONIN 5 MG TABLETS PO SCH (22:16)
[2022-03-09] MEDS: BUPRENORPHINE/NALOXONE 8 MG/2 MG FILM PACKET SL SCH ×3 (06:04→22:45)
[2022-03-09] MEDS: FLUTICASONE PROP 0.05% 16 GM NASAL SPRAY NS SCH ×2 (10:48→21:35)
[2022-03-09] MEDS: PRENATAL VITAMINS W/ FOLIC ACID TABLET (FP) PO SCH (10:48)
[2022-03-09] MEDS: AMMONIUM LACTATE 12% LOTION 225 GM BOTTLE TP SCH (10:49)
[2022-03-09] MEDS: NICOTINE 10 MG CARTRIDGE (INHALER) IH PRN (10:49)
[2022-03-09] MEDS: LIDOCAINE 5% TOPICAL PATCH TP SCH ×2 (10:50)
[2022-03-09] MEDS: IBUPROFEN 400 MG TABLET (FP) PO PRN (10:52)
[2022-03-09] MEDS: NICOTINE 7 MG/24 HOURS TOPICAL PATCH TD SCH (11:31)
[2022-03-09] MEDS: CLOTRIMAZOLE 1% CREAM TP SCH ×2 (11:31→21:36)
[2022-03-09] MEDS: LIDOCAINE PATCH REMOVAL MC SCH ×2 (21:36)
[2022-03-09] MEDS: hydrOXYzine PAMOATE 25 MG CAPSULE (FP) PO PRN (21:36)
[2022-03-09] MEDS: QUEtiapine FUMARATE 50 MG TABLET PO SCH (21:36)
[2022-03-09] MEDS: MELATONIN 5 MG TABLETS PO SCH (21:36)
[2022-03-09] MEDS: THIAMINE HCL 100 MG TABLET (FP) PO SCH (21:36)
[2022-03-09] MEDS: METHOCARBAMOL 500 MG TABLET PO PRN (21:36)
[2022-03-10] MEDS: BUPRENORPHINE/NALOXONE 8 MG/2 MG FILM PACKET SL SCH ×3 (05:54→21:52)
[2022-03-10] MEDS: PRENATAL VITAMINS W/ FOLIC ACID TABLET (FP) PO SCH (10:33)
[2022-03-10] MEDS: NICOTINE 7 MG/24 HOURS TOPICAL PATCH TD SCH (10:33)
[2022-03-10] MEDS: LIDOCAINE 5% TOPICAL PATCH TP SCH ×2 (10:34→10:35)
[2022-03-10] MEDS: FLUTICASONE PROP 0.05% 16 GM NASAL SPRAY NS SCH ×2 (10:34→21:51)
[2022-03-10] MEDS: AMMONIUM LACTATE 12% LOTION 225 GM BOTTLE TP SCH (10:35)
[2022-03-10] MEDS: CLOTRIMAZOLE 1% CREAM TP SCH ×2 (10:36→21:53)
[2022-03-10] MEDS: NICOTINE 10 MG CARTRIDGE (INHALER) IH PRN (10:37)
[2022-03-10] MEDS: hydrOXYzine PAMOATE 25 MG CAPSULE (FP) PO PRN ×2 (14:35→19:03)
[2022-03-10] MEDS: METHYL SALICYLATE/MENTHOL OINT 30 GM TUBE TP SCH (21:50)
[2022-03-10] MEDS: THIAMINE HCL 100 MG TABLET (FP) PO SCH (21:52)
[2022-03-10] MEDS: QUEtiapine FUMARATE 50 MG TABLET PO SCH (21:52)
[2022-03-10] MEDS: LIDOCAINE PATCH REMOVAL MC SCH ×2 (21:52→21:53)
[2022-03-10] MEDS: MELATONIN 5 MG TABLETS PO SCH (21:53)
[2022-03-11] MEDS: BUPRENORPHINE/NALOXONE 8 MG/2 MG FILM PACKET SL SCH ×3 (06:44→21:55)
[2022-03-11 09:43] LABS: CALCIUM 9.3 mg/dL (8.5-10.1)
[2022-03-11 09:46] LABS: CREATININE 0.7 mg/dL (0.55-1.3)
[2022-03-11 09:48] LABS: BILIRUBIN,TOTAL 0.3 mg/dL (0.2-1); TOT PROT 7.4 g/dl (6.4-8.2)
[2022-03-11] MEDS: AMMONIUM LACTATE 12% LOTION 225 GM BOTTLE TP SCH (10:29)
[2022-03-11] MEDS: METHYL SALICYLATE/MENTHOL OINT 30 GM TUBE TP SCH ×2 (10:29→21:39)
[2022-03-11] MEDS: FLUTICASONE PROP 0.05% 16 GM NASAL SPRAY NS SCH ×2 (10:29→21:39)
[2022-03-11] MEDS: CLOTRIMAZOLE 1% CREAM TP SCH ×2 (10:30→21:38)
[2022-03-11] MEDS: LIDOCAINE 5% TOPICAL PATCH TP SCH ×2 (10:30)
[2022-03-11] MEDS: PRENATAL VITAMINS W/ FOLIC ACID TABLET (FP) PO SCH (10:31)
[2022-03-11] MEDS: NICOTINE 7 MG/24 HOURS TOPICAL PATCH TD SCH (10:31)
[2022-03-11] MEDS: NICOTINE 10 MG CARTRIDGE (INHALER) IH PRN ×2 (10:31→21:37)
[2022-03-11] MEDS: MELATONIN 5 MG TABLETS PO SCH (21:37)
[2022-03-11] MEDS: THIAMINE HCL 100 MG TABLET (FP) PO SCH (21:38)
[2022-03-11] MEDS: QUEtiapine FUMARATE 50 MG TABLET PO SCH (21:38)
[2022-03-11] MEDS: hydrOXYzine PAMOATE 25 MG CAPSULE (FP) PO PRN (21:38)
[2022-03-11] MEDS: LIDOCAINE PATCH REMOVAL MC SCH ×2 (21:40)
[2022-03-12] MEDS: BUPRENORPHINE/NALOXONE 8 MG/2 MG FILM PACKET SL SCH ×3 (05:57→22:02)
[2022-03-12] MEDS: AMMONIUM LACTATE 12% LOTION 225 GM BOTTLE TP SCH (10:52)
[2022-03-12] MEDS: FLUTICASONE PROP 0.05% 16 GM NASAL SPRAY NS SCH ×2 (10:53→21:55)
[2022-03-12] MEDS: METHYL SALICYLATE/MENTHOL OINT 30 GM TUBE TP SCH ×2 (10:54→21:55)
[2022-03-12] MEDS: NICOTINE 10 MG CARTRIDGE (INHALER) IH PRN (10:54)
[2022-03-12] MEDS: PRENATAL VITAMINS W/ FOLIC ACID TABLET (FP) PO SCH (10:54)
[2022-03-12] MEDS: LIDOCAINE 5% TOPICAL PATCH TP SCH ×2 (11:42→11:43)
[2022-03-12] MEDS: CLOTRIMAZOLE 1% CREAM TP SCH ×2 (11:43→21:55)
[2022-03-12] MEDS: NICOTINE 7 MG/24 HOURS TOPICAL PATCH TD SCH (11:43)
[2022-03-12] MEDS: METHOCARBAMOL 500 MG TABLET PO PRN (13:39)
[2022-03-12] MEDS: hydrOXYzine PAMOATE 25 MG CAPSULE (FP) PO PRN ×2 (18:00→21:55)
[2022-03-12] MEDS: QUEtiapine FUMARATE 50 MG TABLET PO SCH (21:54)
[2022-03-12] MEDS: THIAMINE HCL 100 MG TABLET (FP) PO SCH (21:56)
[2022-03-12] MEDS: MELATONIN 5 MG TABLETS PO SCH (21:56)
[2022-03-12] MEDS: LIDOCAINE PATCH REMOVAL MC SCH ×2 (21:58)
[2022-03-13] MEDS: BUPRENORPHINE/NALOXONE 8 MG/2 MG FILM PACKET SL SCH ×3 (06:18→21:52)
[2022-03-13] MEDS: METHYL SALICYLATE/MENTHOL OINT 30 GM TUBE TP SCH ×2 (10:26→21:46)
[2022-03-13] MEDS: FLUTICASONE PROP 0.05% 16 GM NASAL SPRAY NS SCH ×2 (10:27→21:45)
[2022-03-13] MEDS: PRENATAL VITAMINS W/ FOLIC ACID TABLET (FP) PO SCH (10:27)
[2022-03-13] MEDS: hydrOXYzine PAMOATE 25 MG CAPSULE (FP) PO PRN ×3 (10:28→21:45)
[2022-03-13] MEDS: NICOTINE 10 MG CARTRIDGE (INHALER) IH PRN (10:28)
[2022-03-13] MEDS: CLOTRIMAZOLE 1% CREAM TP SCH ×2 (10:29→21:48)
[2022-03-13] MEDS: AMMONIUM LACTATE 12% LOTION 225 GM BOTTLE TP SCH (10:29)
[2022-03-13] MEDS: NICOTINE 7 MG/24 HOURS TOPICAL PATCH TD SCH (10:29)
[2022-03-13] MEDS: LIDOCAINE 5% TOPICAL PATCH TP SCH ×2 (10:29)
[2022-03-13] MEDS: QUEtiapine FUMARATE 50 MG TABLET PO SCH (21:45)
[2022-03-13] MEDS: LIDOCAINE PATCH REMOVAL MC SCH ×2 (21:46→21:48)
[2022-03-13] MEDS: THIAMINE HCL 100 MG TABLET (FP) PO SCH (21:49)
[2022-03-13] MEDS: MELATONIN 5 MG TABLETS PO SCH (21:49)
[2022-03-14] MEDS: BUPRENORPHINE/NALOXONE 8 MG/2 MG FILM PACKET SL SCH ×3 (06:35→22:45)
[2022-03-14] MEDS: PRENATAL VITAMINS W/ FOLIC ACID TABLET (FP) PO SCH (10:30)
[2022-03-14] MEDS: LIDOCAINE 5% TOPICAL PATCH TP SCH ×2 (10:30→10:32)
[2022-03-14] MEDS: AMMONIUM LACTATE 12% LOTION 225 GM BOTTLE TP SCH (10:31)
[2022-03-14] MEDS: METHYL SALICYLATE/MENTHOL OINT 30 GM TUBE TP SCH ×2 (10:32→21:30)
[2022-03-14] MEDS: CLOTRIMAZOLE 1% CREAM TP SCH ×2 (10:32→21:31)
[2022-03-14] MEDS: FLUTICASONE PROP 0.05% 16 GM NASAL SPRAY NS SCH ×2 (10:32→21:30)
[2022-03-14] MEDS: NICOTINE 7 MG/24 HOURS TOPICAL PATCH TD SCH (10:32)
[2022-03-14] MEDS: NICOTINE 10 MG CARTRIDGE (INHALER) IH PRN (10:33)
[2022-03-14] MEDS: hydrOXYzine PAMOATE 25 MG CAPSULE (FP) PO PRN ×3 (10:33→21:30)
[2022-03-14] MEDS: THIAMINE HCL 100 MG TABLET (FP) PO SCH (21:29)
[2022-03-14] MEDS: QUEtiapine FUMARATE 50 MG TABLET PO SCH (21:29)
[2022-03-14] MEDS: LIDOCAINE PATCH REMOVAL MC SCH ×2 (21:31)
[2022-03-14] MEDS: MELATONIN 5 MG TABLETS PO SCH (21:32)
[2022-03-15] MEDS: BUPRENORPHINE/NALOXONE 8 MG/2 MG FILM PACKET SL SCH ×3 (06:37→21:39)
[2022-03-15] MEDS: NICOTINE 10 MG CARTRIDGE (INHALER) IH PRN (06:39)
[2022-03-15] MEDS: FLUTICASONE PROP 0.05% 16 GM NASAL SPRAY NS SCH ×2 (10:07→21:30)
[2022-03-15] MEDS: AMMONIUM LACTATE 12% LOTION 225 GM BOTTLE TP SCH (10:07)
[2022-03-15] MEDS: METHYL SALICYLATE/MENTHOL OINT 30 GM TUBE TP SCH ×2 (10:07→21:31)
[2022-03-15] MEDS: LIDOCAINE 5% TOPICAL PATCH TP SCH ×2 (10:07→10:08)
[2022-03-15] MEDS: CLOTRIMAZOLE 1% CREAM TP SCH ×2 (10:08→21:31)
[2022-03-15] MEDS: NICOTINE 7 MG/24 HOURS TOPICAL PATCH TD SCH (10:08)
[2022-03-15] MEDS: PRENATAL VITAMINS W/ FOLIC ACID TABLET (FP) PO SCH (10:08)
[2022-03-15] MEDS: hydrOXYzine PAMOATE 25 MG CAPSULE (FP) PO PRN ×2 (11:18→17:42)
[2022-03-15] MEDS: QUEtiapine FUMARATE 50 MG TABLET PO SCH (21:29)
[2022-03-15] MEDS: MELATONIN 5 MG TABLETS PO SCH (21:30)
[2022-03-15] MEDS: THIAMINE HCL 100 MG TABLET (FP) PO SCH (21:33)
[2022-03-15] MEDS: LIDOCAINE PATCH REMOVAL MC SCH ×2 (23:00)
[2022-03-16] MEDS: BUPRENORPHINE/NALOXONE 8 MG/2 MG FILM PACKET SL SCH ×3 (06:00→21:53)
[2022-03-16] MEDS: METHYL SALICYLATE/MENTHOL OINT 30 GM TUBE TP SCH ×3 (10:15→21:58)
[2022-03-16] MEDS: PRENATAL VITAMINS W/ FOLIC ACID TABLET (FP) PO SCH (10:18)
[2022-03-16] MEDS: LIDOCAINE 5% TOPICAL PATCH TP SCH ×2 (10:19→10:20)
[2022-03-16] MEDS: hydrOXYzine PAMOATE 25 MG CAPSULE (FP) PO PRN ×2 (10:21→21:54)
[2022-03-16] MEDS: AMMONIUM LACTATE 12% LOTION 225 GM BOTTLE TP SCH (10:23)
[2022-03-16] MEDS: FLUTICASONE PROP 0.05% 16 GM NASAL SPRAY NS SCH ×2 (10:23→21:58)
[2022-03-16] MEDS: CLOTRIMAZOLE 1% CREAM TP SCH ×2 (10:23→22:01)
[2022-03-16] MEDS: NICOTINE 7 MG/24 HOURS TOPICAL PATCH TD SCH (10:23)
[2022-03-16] MEDS: guaiFENesin 600 MG TABLET.ER (FP) PO SCH ×2 (13:53→21:54)
[2022-03-16] MEDS: QUEtiapine FUMARATE 50 MG TABLET PO SCH (21:53)
[2022-03-16] MEDS: THIAMINE HCL 100 MG TABLET (FP) PO SCH (21:53)
[2022-03-16] MEDS: NICOTINE 10 MG CARTRIDGE (INHALER) IH PRN (21:55)
[2022-03-16] MEDS: LIDOCAINE PATCH REMOVAL MC SCH ×2 (21:58→22:00)
[2022-03-16] MEDS: MELATONIN 5 MG TABLETS PO SCH (22:01)
[2022-03-17] MEDS: BENZOCAINE/MENTHOL (CHLORASEPTIC ) LOZENGE MM PRN (06:26)
[2022-03-17] MEDS: BUPRENORPHINE/NALOXONE 8 MG/2 MG FILM PACKET SL SCH ×3 (06:26→22:27)
[2022-03-17 08:05] VITALS: RESP 18
[2022-03-17] MEDS: LIDOCAINE 5% TOPICAL PATCH TP SCH ×2 (10:30)
[2022-03-17] MEDS: METHYL SALICYLATE/MENTHOL OINT 30 GM TUBE TP SCH ×2 (10:31→21:31)
[2022-03-17] MEDS: FLUTICASONE PROP 0.05% 16 GM NASAL SPRAY NS SCH ×2 (10:31→21:31)
[2022-03-17] MEDS: guaiFENesin 600 MG TABLET.ER (FP) PO SCH ×2 (10:32→23:44)
[2022-03-17] MEDS: NICOTINE 7 MG/24 HOURS TOPICAL PATCH TD SCH (10:32)
[2022-03-17] MEDS: CLOTRIMAZOLE 1% CREAM TP SCH ×2 (10:32→21:32)
[2022-03-17] MEDS: PRENATAL VITAMINS W/ FOLIC ACID TABLET (FP) PO SCH (10:32)
[2022-03-17] MEDS: AMMONIUM LACTATE 12% LOTION 225 GM BOTTLE TP SCH (10:32)
[2022-03-17] MEDS: hydrOXYzine PAMOATE 25 MG CAPSULE (FP) PO PRN ×2 (10:34→18:51)
[2022-03-17] MEDS: LIDOCAINE PATCH REMOVAL MC SCH ×2 (21:31)
[2022-03-17] MEDS: MELATONIN 5 MG TABLETS PO SCH (21:32)
[2022-03-17] MEDS: THIAMINE HCL 100 MG TABLET (FP) PO SCH (21:33)
[2022-03-17] MEDS: QUEtiapine FUMARATE 50 MG TABLET PO SCH (21:33)
[2022-03-18] MEDS: BUPRENORPHINE/NALOXONE 8 MG/2 MG FILM PACKET SL SCH ×3 (06:48→22:08)
[2022-03-18] MEDS: BENZOCAINE/MENTHOL (CHLORASEPTIC ) LOZENGE MM PRN ×2 (06:48→21:38)
[2022-03-18] MEDS: LIDOCAINE 5% TOPICAL PATCH TP SCH ×2 (09:47→09:48)
[2022-03-18] MEDS: FLUTICASONE PROP 0.05% 16 GM NASAL SPRAY NS SCH ×2 (09:47→21:26)
[2022-03-18] MEDS: guaiFENesin 600 MG TABLET.ER (FP) PO SCH ×2 (09:48→21:24)
[2022-03-18] MEDS: AMMONIUM LACTATE 12% LOTION 225 GM BOTTLE TP SCH (09:48)
[2022-03-18] MEDS: CLOTRIMAZOLE 1% CREAM TP SCH ×2 (09:48→21:27)
[2022-03-18] MEDS: NICOTINE 7 MG/24 HOURS TOPICAL PATCH TD SCH (09:49)
[2022-03-18] MEDS: PRENATAL VITAMINS W/ FOLIC ACID TABLET (FP) PO SCH (09:49)
[2022-03-18] MEDS: METHYL SALICYLATE/MENTHOL OINT 30 GM TUBE TP SCH ×2 (09:49→21:26)
[2022-03-18] MEDS: hydrOXYzine PAMOATE 25 MG CAPSULE (FP) PO PRN ×2 (09:50→21:24)
[2022-03-18] MEDS: MELATONIN 5 MG TABLETS PO SCH (21:24)
[2022-03-18] MEDS: QUEtiapine FUMARATE 50 MG TABLET PO SCH (21:24)
[2022-03-18] MEDS: LIDOCAINE PATCH REMOVAL MC SCH ×2 (21:26→21:27)
[2022-03-18] MEDS: THIAMINE HCL 100 MG TABLET (FP) PO SCH (21:28)
[2022-03-19] MEDS: BUPRENORPHINE/NALOXONE 8 MG/2 MG FILM PACKET SL SCH ×2 (06:59→13:54)
[2022-03-19 07:12] VITALS: BP 113/72; PULSE 78; TEMP 98.7
[2022-03-19] MEDS: PRENATAL VITAMINS W/ FOLIC ACID TABLET (FP) PO SCH (09:23)
[2022-03-19] MEDS: METHYL SALICYLATE/MENTHOL OINT 30 GM TUBE TP SCH (09:23)
[2022-03-19] MEDS: NICOTINE 7 MG/24 HOURS TOPICAL PATCH TD SCH (09:24)
[2022-03-19] MEDS: AMMONIUM LACTATE 12% LOTION 225 GM BOTTLE TP SCH (09:24)
[2022-03-19] MEDS: CLOTRIMAZOLE 1% CREAM TP SCH (09:24)
[2022-03-19] MEDS: LIDOCAINE 5% TOPICAL PATCH TP SCH ×2 (09:24)
[2022-03-19] MEDS: hydrOXYzine PAMOATE 25 MG CAPSULE (FP) PO PRN (09:26)
[2022-03-19] MEDS: guaiFENesin 600 MG TABLET.ER (FP) PO SCH (09:28)
[2022-03-19] MEDS: FLUTICASONE PROP 0.05% 16 GM NASAL SPRAY NS SCH (09:28)
[2022-03-19] MEDS: NICOTINE 10 MG CARTRIDGE (INHALER) IH PRN (09:29)
== END 2022-03-19 14:40 | disposition home or self-care (01) | DRG 772 ==
LOC: YASAS 16:32 → Y5N 18:57
PROVIDERS: ADMIT Allergy & Immunology; ATTEND Psychiatry & Neurology Pain Medicine
PROC: HZ42ZZZ Group Counseling for Substance Abuse Treatment, Cognitive-Behavioral (ICD-10-PCS; principal; 2022-02-19)
DX: F11.20 Opioid dependence, uncomplicated (principal); F10.20 Alcohol dependence, uncomplicated; F14.20 Cocaine dependence, uncomplicated; F12.20 Cannabis dependence, uncomplicated; F17.210 Nicotine dependence, cigarettes, uncomplicated; F19.24 Other psychoactive substance dependence with psychoactive substance-induced mood disorder; F43.21 Adjustment disorder with depressed mood; F43.10 Post-traumatic stress disorder, unspecified; K08.89 Other specified disorders of teeth and supporting structures; M25.551 Pain in right hip; M54.50 Low back pain, unspecified; Z62.810 Personal history of physical and sexual abuse in childhood; Z86.19 Personal history of other infectious and parasitic diseases; Z99.89 Dependence on other enabling machines and devices
CPT/HCPCS: 36415; 80053; 81003; 85027; 86593; 86780; 87077; 87086